=== PATIENT | male | born 1985 | race Caucasian/White ===

== ENCOUNTER 2023-11-20 17:48 | Emergency (ER) | payer SELFPAY ==
[~2023-11-20] VITALS: Ht 170.2 cm; Wt 90.0 kg
[2023-11-20 18:07] VITALS: TEMP 99.1
[2023-11-20] MEDS: PHENYTOIN SODIUM 100MG/2ML VIAL IV ONE (18:45)
[2023-11-20 18:59] VITALS: O2SAT 99
[2023-11-20] MEDS: MIDAZOLAM HCL 2 MG/2 ML VIAL IV ONE (18:59)
[2023-11-20 19:18] LABS: BASOPHILS % 0.1 % (0.0-2.0); HEMATOCRIT. 45.6 % (42.0-52.0); HEMOGLOBIN. 14.9 g/dL (14.0-18.0); LYMPHOCYTES % 7.5 % (20.0-50.0); MEAN CORPUSCULAR HEMOGLOBIN 31.4 pg (28.0-32.0); MEAN CORPUSCULAR HGB CONC 32.6 g/dL (31.0-37.0); MEAN CORPUSCULAR VOLUME 96.2 fL (80.0-94.0); MEAN PLATELET VOLUME 8.2 fl (7.4-10.4); MONOCYTES % 4.4 % (2.0-8.0); PLATELET 268 x1000/uL (130-400); RED BLOOD CELL COUNT 4.74 mill/uL (4.7-6.1); RED CELL DISTRIBUTION WIDTH 12.7 % (11.6-14.6); WHITE BLOOD COUNT 17.5 x1000/uL (4.5-11.0)
[2023-11-20 19:34] LABS: CHLORIDE 100 mEq/L (98-107); POTASSIUM 3.2 mEq/L (3.5-5.1); SODIUM 139 mEq/L (136-145)
[2023-11-20 19:35] LABS: CALCIUM 9.1 mg/dL (8.7-10.4); CARBON DIOXIDE 15 mEq/L (21-32)
[2023-11-20 19:40] LABS: CREATININE 1.2 mg/dL (0.6-1.3); GLUCOSE 103 mg/dL (70-105); UREA NITROGEN BLOOD 14 mg/dL (9-23)
[2023-11-20 19:42] LABS: ALANINE AMINOTRANSFERASE 36 IU/L (10-49); ALBUMIN 4.6 g/dL (3.2-4.8); ASPARTATE AMINOTRANSFERASE 29 IU/L (<34); BILIRUBIN TOTAL 0.4 mg/dL (0.1-1.0); PHOSPHORUS 2.8 mg/dL (2.5-4.9); PROTEIN TOTAL 6.8 g/dL (6.0-8.3)
[2023-11-20] MEDS: PHENYTOIN SODIUM 1000MG in SODIUM CHLORIDE 0.9% 100ML IV NR (20:17)
[2023-11-21 00:28] VITALS: BP 114/73; PULSE 74; RESP 18
== END 2023-11-21 00:26 | disposition left against medical advice (07) ==
LOC: ER 17:48 → EDBEDREQTM 21:46 → EDBEDREQ 21:46 → ER 11-21 00:26 → CANBEDREQ 11-21 01:16
DX: G40.802 Other epilepsy, not intractable, without status epilepticus (principal)
CPT/HCPCS: 99291; 96365; 70450; 96375; 80053; 82962; 83735; 84100; 85025; 36415; J2250; J1165 ×2; J7050